=== PATIENT | female | born 1935 | race Caucasian/White ===

== ENCOUNTER → 2016-05-21 | Outpatient (REF) | payer MEDICARE ==
[~2016-05-21] MED LIST: /WARF25TA; ACTO45TA; CALC600T10; CALCTAB22; GABA300T; GLUCOSAMINE/CHONDROI; NEUR300C; OYST500T58; THERGRAN; TYLENOL #3; VICO5TAB; glucosamine/chondroi
[2016-05-21 13:11] LABS: PERCENT SATURATION 21.6 % (13.2-37.4)
== END ==
LOC: M LAB REF 12:28
PROVIDERS: ATTEND Internal Medicine Medical Oncology
DX: C50.119 Malignant neoplasm of central portion of unspecified female breast (principal); D64.9 Anemia, unspecified

== ENCOUNTER → 2016-08-22 | Outpatient (REF) | payer MEDICARE ==
[2016-08-22 15:16] LABS: PERCENT SATURATION 21.8 % (13.2-37.4)
== END ==
LOC: M LAB REF 12:40
PROVIDERS: ATTEND Internal Medicine Medical Oncology
DX: D50.9 Iron deficiency anemia, unspecified (principal)

== ENCOUNTER → 2017-01-23 | Outpatient (REF) | payer MEDICARE | LOC: M LAB REF 13:48 | PROVIDERS: ATTEND Internal Medicine Medical Oncology | DX: C50.919 Malignant neoplasm of unspecified site of unspecified female breast (principal); D64.9 Anemia, unspecified ==

== ENCOUNTER → 2017-09-04 | Outpatient (REF) | payer MEDICARE, OTHER ==
[2017-09-04 14:12] LABS: FERRITIN 35 NG/ML (8-252); IRON (FE) 76 UG/DL (50-170); PERCENT SATURATION 21.2 % (13.2-45.0); TOTAL IRON BINDING CAPACITY 358 UG/DL (250-450)
[2017-09-05 10:36] LABS: CA15-3 ANTIGEN 7.6 U/ML (<32.4)
== END ==
LOC: M LAB REF 13:15
DX: D50.9 Iron deficiency anemia, unspecified (principal)
CPT/HCPCS: 83550

== ENCOUNTER → 2017-09-08 | Outpatient (REF) | payer MEDICARE, OTHER | LOC: M LAB REF 13:06 | DX: D64.9 Anemia, unspecified (principal) | CPT/HCPCS: 82270 ==

== ENCOUNTER 2018-04-24 07:42 | Day surgery (SDC) | payer MEDICARE ==
[~2018-04-24] VITALS: Ht 152.4 cm; Wt 60.3 kg
[~2018-04-24 07:42] MED LIST changes: +ANAS1TAB2 PO; +DULO1CAP2 PO; +FERR325T3 PO; +GABA-843 PO; +GLUC1CAP10 PO; +LOSA25TA14 PO; +METF500T13 PO; +NS 1,000 ML IV ONE; +OXYB5TAB PO; +OYST1TAB PO; +SITA50TAB PO; +TYLE650T35 PO; +TYLETAB14 PO
[2018-04-24] MEDS ORDERED: LIDOCAINE 2% INJ 100 MG/5 ML SDV (FOR ANES.) As Ordered ONE (07:47)
[2018-04-24] MEDS ORDERED: fentaNYL 100 MCG/2 ML INJECTION (J3010) As Ordered ONE (07:47)
[2018-04-24] MEDS ORDERED: PROPOFOL 200 MG/20 ML VIAL As Ordered ONE (07:47)
--- NOTE | 2018-04-24 08:48 | ROOR ---
Patient Name: Yusra Bar Procedure Date: 04/24/2018 8:33 AM Date of : 1935 Age: 82 Room: [facility] Gender: Female Note Status: Finalized Procedure: Upper GI endoscopy + Small bowel bx. Indications: Iron deficiency anemia Providers: Kirt Elkins MD Referring MD: Torrie St DO Requesting Provider: Medicines: Monitored Anesthesia Care Complications: No immediate complications. Procedure: Pre-Anesthesia Assessment: - The heart rate, respiratory rate, oxygen saturations, blood pressure, adequacy of pulmonary ventilation, and response to care were monitored throughout the procedure. The Endoscope was introduced through the mouth, and advanced to the second part of duodenum. The upper GI endoscopy was accomplished without difficulty. The patient tolerated the procedure well. Findings: The Z-line was regular and was found 37 cm from the incisors. No other significant abnormalities were identified in a careful examination of the stomach. The exam of the duodenum was otherwise normal. Biopsies for histology were taken with a cold forceps in the first portion of the duodenum for evaluation of celiac disease. The exam was otherwise without abnormality. Impression: - Z-line regular, 37 cm from the incisors. - The examination was otherwise normal. - Biopsies were taken with a cold forceps for evaluation of celiac disease. - The examination was otherwise normal. Recommendation: - Patient has a contact number available for emergencies. The signs and symptoms of potential delayed complications were discussed with the patient. Return to normal activities tomorrow. Written discharge instructions were provided to the patient. - High fiber diet. - Discharge patient to home. - Continue present medications. - Await pathology results. - Telephone GI clinic for pathology results in 1 week. - Return to referring physician. - The findings and recommendations were discussed with the patient's family. Kirt Elkins MD Kirt Elkins MD 04/24/2018 8:47:35 AM This report has been signed electronically. Number of Addenda: 0 Note Initiated On: 04/24/2018 8:33 AM Estimated Blood Loss: Estimated blood loss: none.
--- NOTE | 2018-04-24 09:04 | ROOR ---
Patient Name: Yusra Bar Procedure Date: 04/24/2018 8:34 AM Date of : 1935 Age: 82 Room: [facility] Gender: Female Note Status: Finalized Procedure: Total Colonoscopy to Cecum Indications: Unexplained iron deficiency anemia Providers: Kirt Elkins MD Referring MD: Torrie St DO Requesting Provider: Medicines: Monitored Anesthesia Care Complications: No immediate complications. Procedure: Pre-Anesthesia Assessment: - The heart rate, respiratory rate, oxygen saturations, blood pressure, adequacy of pulmonary ventilation, and response to care were monitored throughout the procedure. The Colonoscope was introduced through the anus and advanced to the cecum, identified by appendiceal orifice and ileocecal valve. The colonoscopy was performed without difficulty. The patient tolerated the procedure well. The quality of the bowel preparation was excellent. Findings: The perianal and digital rectal examinations were normal. Non-bleeding internal hemorrhoids were found during retroflexion. The hemorrhoids were small and Grade I (internal hemorrhoids that do not prolapse). Multiple small and large-mouthed diverticula were found in the recto-sigmoid colon, sigmoid colon and descending colon. The exam was otherwise without abnormality on direct and retroflexion views. Impression: - Non-bleeding internal hemorrhoids. - Diverticulosis in the recto-sigmoid colon, in the sigmoid colon and in the descending colon. - The examination was otherwise normal on direct and retroflexion views. - No specimens collected. - The exam was otherwise normal to the cecum. Recommendation: - Patient has a contact number available for emergencies. The signs and symptoms of potential delayed complications were discussed with the patient. Return to normal activities tomorrow. Written discharge instructions were provided to the patient. - High fiber diet. - Discharge patient to home. - Continue present medications. - Repeat colonoscopy for symptoms only. - The findings and recommendations were discussed with the patient's family. Kirt Elkins MD Kirt Elkins MD 04/24/2018 9:04:29 AM This report has been signed electronically. Number of Addenda: 0 Note Initiated On: 04/24/2018 8:34 AM Estimated Blood Loss: Estimated blood loss: none.
[2018-04-24 09:35] VITALS: BP 186/86
== END 2018-04-24 09:36 | disposition home or self-care (01) ==
LOC: M OPP 07:42
PROVIDERS: ATTEND Internal Medicine Gastroenterology
DX: K64.0 First degree hemorrhoids (principal); K57.30 Diverticulosis of large intestine without perforation or abscess without bleeding; D50.9 Iron deficiency anemia, unspecified
CPT/HCPCS: 43239; 45378; 88305; J3010

== ENCOUNTER → 2018-06-18 | Outpatient (REF) | payer MEDICARE ==
[~2018-06-18] MED LIST changes: -/WARF25TA; +COUM1TAB18; +NAPR-832 PO; -NS 1,000 ML IV ONE
[2018-06-18 18:15] LABS: PERCENT SATURATION 25.8 % (13.2-45.0)
== END ==
LOC: M LAB REF 17:34
PROVIDERS: ATTEND Internal Medicine
DX: D64.9 Anemia, unspecified (principal)

== ENCOUNTER → 2018-12-22 | Outpatient (REF) | payer MEDICARE ==
[~2018-12-22] MED LIST changes: -DULO1CAP2 PO; +DULO1CAP5 PO; -OXYB5TAB PO; +OXYB5TAB2 PO
[2018-12-22 13:02] LABS: PLATELET COUNT, AUTOMATED 229 10^3/uL (150-450)
[2018-12-22 13:18] LABS: COLLAGEN EPINEPHRINE 131 SECONDS (74-162)
[2018-12-22 13:19] LABS: INR 1.01
[2018-12-22 13:20] LABS: PARTIAL THROMBOPLASTIN TIME 29.3 SECONDS (25.0-38.4)
== END ==
LOC: M LABDRAW1 12:40
PROVIDERS: ATTEND Physical Medicine & Rehabilitation
DX: M51.37 Other intervertebral disc degeneration, lumbosacral region (principal)

== ENCOUNTER → 2019-01-07 | Outpatient (CLI) | payer MEDICARE ==
--- NOTE | 2019-01-07 16:54 | REP ---
REASON FOR EXAM: Back pain. COMPARISON EXAM: 03/26/2012. After the intravenous administration of 22.0 millicuries of technetium 99M MDP a total body bone scan was obtained. Increased radionuclide accumulation is seen in the shoulders increased slightly from the prior exam. Increased radionuclide accumulation is seen in the left wrist status quo. 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 Increased radionuclide accumulation is seen in the feet and ankles unchanged. There is slight increased radionuclide accumulation seen in the lumbar spine at the L5 region which has developed since the last exam. Patchy increased radionuclide accumulation is again seen in the cervical spine. IMPRESSION: ALL uptake patterns with the exception of the increased radionuclide accumulation seen in the L5 region were present on the prior exam and consistent with degenerative changes. The increased uptake seen is of uncertain etiology. Certainly, it too could be secondary to degenerative change, however other etiology exits. A lumbar spine MRI of 07/14/2018 showed chronic changes at L4-5 and L5-S1. If the patient has pain of increasing severity or has sustained an injury or new medical diagnosis since that examination then consideration should be made for repeat lumbar spine MRI so is it can be compared to the prior exam. Electronically Signed by Mario Alberto Millan DO 01/07/2019 04:59 P
== END ==
LOC: M RAD 09:48
PROVIDERS: ATTEND Physical Medicine & Rehabilitation
DX: M47.27 Other spondylosis with radiculopathy, lumbosacral region (principal)
CPT/HCPCS: 78306; A9503

== ENCOUNTER → 2019-03-02 | Outpatient (REF) | payer MEDICARE ==
[~2019-03-02] MED LIST changes: -OXYB5TAB2 PO; +OXYB5TAB3 PO
[2019-03-02 12:29] LABS: BLOOD UREA NITROGEN 14 MG/DL (7-18); CREATININE FOR GFR 0.59 MG/DL (0.55-1.30); GLOMERULAR FILTRATION RATE > 60.0 (>32)
== END ==
LOC: M LABDRAW1 10:49
PROVIDERS: ATTEND Physical Medicine & Rehabilitation
DX: M51.27 Other intervertebral disc displacement, lumbosacral region (principal)

== ENCOUNTER → 2019-03-15 | Outpatient (CLI) | payer MEDICARE ==
[~2019-03-15] MED LIST changes: +PROHANCE 279.3MG/ML 15ML VIAL (A9576) As Ordered ONE
--- NOTE | 2019-03-15 16:35 | REP ---
MRI lumbar spine: 03/15/2019. Indication: Low back pain. Concern for metastases. Comparison: None. Technique: Multiplanar short and long TR sequences of the lumbar spine were performed including post gadolinium imaging. 12 ml of IV ProHance were administered. Findings: There is a grade 1 anterolisthesis of L3 on L4 and L4 on L5 as well as minimal retrolisthesis of L5 on S1. No compression deformities are present. There are no areas of worrisome marrow signal. There are multiple areas of enhancement within the L4/L5 facet/Perifacetal soft tissue. The visualized cord is normal. No significant paraspinal soft tissue abnormalities are detected. L1/L2 and L2/L3: There is no focal disc herniation or significant spinal canal / neural foraminal narrowing. Bilateral facet arthropathy is present at each level. L3/L4: Diffuse disc uncovering/bulge and bilateral facet arthropathy are present with moderate to severe right greater than left recess narrowing. Moderate bilateral neural foraminal narrowing is present. L4/L5: Diffuse disc uncovering/bulge and significant bilateral facet arthropathy are present. Dural enhancement at this level as likely reactive. There is severe narrowing of the spinal canal. Moderate bilateral neural foraminal narrowing is present. L5/S1: Diffuse disc and spur complex and bilateral facet arthropathy are present with severe left and moderate to severe right recess narrowing. Moderate bilateral neural foraminal narrowing is present. 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 There is no evidence of lumbar spine metastatic disease. Electronically Signed by Gabo Lang DO 03/15/2019 04:27 P
== END ==
LOC: M RAD 14:59
PROVIDERS: ATTEND Physical Medicine & Rehabilitation
DX: M51.27 Other intervertebral disc displacement, lumbosacral region (principal)
CPT/HCPCS: 72158; A9576

== ENCOUNTER → 2019-08-10 | Outpatient (REF) | payer MEDICARE ==
[~2019-08-10] MED LIST changes: +GABA-845 PO; +MYRB25TA PO; +OXYB-54 PO; -OXYB5TAB3 PO; -PROHANCE 279.3MG/ML 15ML VIAL (A9576) As Ordered ONE
[2019-08-10 20:20] LABS: ALBUMIN 3.7 GM/DL (3.2-5.2); ALT/SGPT 26 U/L (12-78); BILIRUBIN,TOTAL 0.3 MG/DL (0.2-1.0); BLOOD UREA NITROGEN 16 MG/DL (7-18); CALCIUM LEVEL 8.9 MG/DL (8.8-10.2); CARBON DIOXIDE LEVEL 31 MEQ/L (21-32); CHLORIDE LEVEL 100 MEQ/L (98-107); CREATININE FOR GFR 0.71 MG/DL (0.55-1.30); GLOMERULAR FILTRATION RATE > 60.0 (>32); GLUCOSE, FASTING 155 MG/DL (70-100); POTASSIUM SERUM 4.2 MEQ/L (3.5-5.1); SODIUM LEVEL 139 MEQ/L (136-145); TOTAL PROTEIN 6.7 GM/DL (6.4-8.2)
[2019-08-10 20:23] LABS: BASO # 0.1 10^3/uL (0.0-0.2); BASO % 0.8 % (0.0-1.0); EOS # 0.5 10^3/uL (0.0-0.5); HEMATOCRIT 34.4 % (36.0-47.0); HEMOGLOBIN 11.1 g/dl (12.0-15.5); LYMPH # 1.5 10^3/uL (1.5-5.0); LYMPH % 18.9 % (24.0-44.0); MEAN CORPUSCULAR HEMOGLOBIN 29.3 pg (27.0-33.0); MEAN CORPUSCULAR HGB CONC 32.3 g/dl (32.0-36.5); MEAN CORPUSCULAR VOLUME 90.8 fl (80.0-96.0); MONO # 0.7 10^3/uL (0.0-0.8); MONO % 8.7 % (0.0-5.0); NEUTROPHILS % 64.2 % (36.0-66.0); PLATELET COUNT, AUTOMATED 255 10^3/uL (150-450); RED BLOOD COUNT 3.79 10^6/uL (4.00-5.40); WHITE BLOOD COUNT 7.7 10^3/uL (4.0-10.0)
== END ==
LOC: M LABDRWAD 16:53
PROVIDERS: ATTEND Internal Medicine Medical Oncology
DX: R92.2 Inconclusive mammogram (principal)

== ENCOUNTER → 2019-09-10 | Outpatient (CLI) | payer MEDICARE | LOC: M LABSMTC 10:41 | PROVIDERS: ATTEND Physical Medicine & Rehabilitation | DX: Z11.59 Encounter for screening for other viral diseases (principal) ==

== ENCOUNTER → 2019-11-24 | Outpatient (CLI) | payer MEDICARE ==
[~2019-11-24] MED LIST changes: +ACET650T61 PO; +FERR32TA PO; -TYLE650T35 PO
[2019-11-24 11:01] LABS: PLATELET COUNT, AUTOMATED 216 10^3/uL (150-450)
[2019-11-24 11:17] LABS: COLLAGEN EPINEPHRINE 117 SECONDS (74-162); INR 0.93; PROTHROMBIN TIME 12.6 SECONDS (11.8-14.0)
[2019-11-24 11:18] LABS: PARTIAL THROMBOPLASTIN TIME 27.6 SECONDS (25.0-38.4)
== END ==
LOC: M LAB 10:23
PROVIDERS: ATTEND Physician Assistant
DX: M51.27 Other intervertebral disc displacement, lumbosacral region (principal); Z79.899 Other long term (current) drug therapy; Z79.84 Long term (current) use of oral hypoglycemic drugs

== ENCOUNTER → 2019-11-29 | Outpatient (REF) | payer MEDICARE | LOC: M LAB REF 16:34 | PROVIDERS: ATTEND Internal Medicine | DX: D64.9 Anemia, unspecified (principal) ==

== ENCOUNTER → 2020-01-19 | Outpatient (CLI) | payer MEDICARE | LOC: M LABSMTC 12:59 | PROVIDERS: ATTEND Physical Medicine & Rehabilitation | DX: Z01.818 Encounter for other preprocedural examination (principal) ==

== ENCOUNTER 2020-03-13 10:04 | Emergency (ER) | payer MEDICARE ==
[~2020-03-13] VITALS: Ht 152.4 cm; Wt 61.2 kg
--- NOTE | 2020-03-13 11:03 | REP ---
INDICATION: RUQ pain, constipation COMPARISON: None. TECHNIQUE: Upright view of the chest with supine and upright views of the abdomen and pelvis. FINDINGS: Frontal upright view of the chest demonstrates no acute cardiopulmonary process or free air below the diaphragm to suspect pneumoperitoneum. Supine and upright views of the abdomen and pelvis demonstrate nonspecific bowel gas pattern without obstruction or perforation. No organomegaly. Calcifications in the pelvis consistent with phleboliths. Skeletal structures normal for age. IMPRESSION: Nonspecific bowel gas pattern. <Electronically signed by Noel Cabrera > 03/13/20 [id number]
[2020-03-13 11:37] LABS: BASO # 0.1 10^3/uL (0.0-0.2); BASO % 0.9 % (0.0-1.0); EOS # 0.3 10^3/uL (0.0-0.5); EOS % 5.4 % (0.0-3.0); HEMOGLOBIN 11.4 g/dl (12.0-15.5); LYMPH # 0.9 10^3/uL (1.5-5.0); LYMPH % 15.9 % (24.0-44.0); MEAN CORPUSCULAR HEMOGLOBIN 27.1 pg (27.0-33.0); MEAN CORPUSCULAR HGB CONC 30.8 g/dl (32.0-36.5); MEAN CORPUSCULAR VOLUME 88.1 fl (80.0-96.0); MONO # 0.5 10^3/uL (0.0-0.8); MONO % 8.3 % (0.0-5.0); NEUTROPHILS # 3.8 10^3/uL (1.5-8.5); PLATELET COUNT, AUTOMATED 234 10^3/uL (150-450); WHITE BLOOD COUNT 5.5 10^3/uL (4.0-10.0)
[2020-03-13] MEDS: GASTROGRAFIN SOLUTION 30ML PO SCH ×2 (13:30→14:37)
[2020-03-13] MEDS ORDERED: ISOVUE-370 76% 100ML VIAL As Ordered ONE (15:37)
--- NOTE | 2020-03-13 16:08 | REP ---
INDICATION: right abd pain. COMPARISON: None TECHNIQUE: Axial contrast-enhanced images from the lung bases to the pubic symphysis using oral and 100 cc Isovue 370 intravenous contrast material. Coronal and sagittal reformations obtained. This CT examination was performed using the following dose reduction techniques: Automated exposure control, adjustment of mA and/or kv according to the patient's size, and the use of iterative reconstruction technique. FINDINGS: Lung bases are clear. Visualized heart and pericardium normal. Liver, spleen, pancreas, bilateral adrenal glands and kidneys are normal. The enteric system is without obstruction or acute inflammatory process. Normal cecum and terminal ileum identified in the right lower quadrant. Findings suggest prior appendectomy. Diffuse colonic and sigmoid diverticulosis noted without acute diverticulitis. Pelvis demonstrates normal bladder and age-appropriate uterus with 4.5 cm bilateral adnexal cysts. No ascites. No free air. No intraperitoneal or retroperitoneal adenopathy. Abdominal aorta and vasculature demonstrate atherosclerotic changes without aneurysm or dissection. Musculoskeletal structures demonstrate age-related degenerative changes without acute osseous abnormality. IMPRESSION: 1. 4.5 cm bilateral adnexal cysts likely benign. Normal appearance to the uterus. No pelvic fluid or adenopathy. 2. Colonic and sigmoid diverticulosis without acute diverticulitis. 3. No ascites. No adenopathy. No focal inflammatory stranding. No free air. 4. Evidence for prior cholecystectomy and appendectomy. <Electronically signed by Noel Cabrera > 03/13/20 [id number]
[2020-03-13] MEDS ORDERED: COLA100C5 PO (16:49)
[2020-03-13 16:52] VITALS: BP 179/94
== END 2020-03-13 17:06 | disposition home or self-care (01) ==
LOC: M ED 10:04
DX: R10.9 Unspecified abdominal pain (principal); K57.30 Diverticulosis of large intestine without perforation or abscess without bleeding; C50.912 Malignant neoplasm of unspecified site of left female breast; D64.9 Anemia, unspecified; E11.9 Type 2 diabetes mellitus without complications; Z88.0 Allergy status to penicillin; Z88.6 Allergy status to analgesic agent
CPT/HCPCS: 36415; 74021; 74177; 80047; 85025; 99284; Q9963; Q9967

== ENCOUNTER 2020-10-08 10:07 | Emergency (ER) | payer MEDICARE ==
[~2020-10-08] VITALS: Ht 152.4 cm; Wt 56.1 kg
[~2020-10-08 10:07] MED LIST changes: +COLA100C5 PO; +COVI100V IM; +GABA-282 PO; +GABA-283 PO; -GABA-843 PO; -GABA-845 PO
[2020-10-08 12:11] LABS: BASO % 0.5 % (0.0-1.0); EOS # 0.1 10^3/uL (0.0-0.5); HEMATOCRIT 38.4 % (36.0-47.0); HEMOGLOBIN 12.8 g/dl (12.0-15.5); LYMPH # 1.2 10^3/uL (1.5-5.0); LYMPH % 14.5 % (24.0-44.0); MEAN CORPUSCULAR HEMOGLOBIN 30.9 pg (27.0-33.0); MEAN CORPUSCULAR HGB CONC 33.3 g/dl (32.0-36.5); MEAN CORPUSCULAR VOLUME 92.8 fl (80.0-96.0); MONO # 0.6 10^3/uL (0.0-0.8); MONO % 6.6 % (2.0-8.0); NEUTROPHILS # 6.4 10^3/uL (1.5-8.5); NEUTROPHILS % 76.9 % (36.0-66.0); PLATELET COUNT, AUTOMATED 246 10^3/uL (150-450); RED BLOOD COUNT 4.14 10^6/uL (4.00-5.40); WHITE BLOOD COUNT 8.4 10^3/uL (4.0-10.0)
[2020-10-08] MEDS ORDERED: NS 500 ML IV ONE (12:25)
--- NOTE | 2020-10-08 12:28 | REP ---
INDICATION: abdominal pain. COMPARISON: Comparison chest radiograph March 13, 2020.. TECHNIQUE: Upright portable AP chest radiograph. 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 No acute bony abnormality is appreciated. The lungs are well inflated and clear. The pleural angles are sharp. Heart size is normal. The aorta is somewhat tortuous as before. IMPRESSION: No active cardiopulmonary disease. <Electronically signed by Ahsan Vernon > 10/08/20 1341
[2020-10-08 12:34] LABS: ALBUMIN 4.5 GM/DL (3.2-5.2); ALT/SGPT 26 U/L (12-78); AMYLASE 52 U/L (25-115); BILIRUBIN,DIRECT 0.2 MG/DL (0.0-0.2); BILIRUBIN,TOTAL 0.6 MG/DL (0.2-1.0); CK-MB VALUE MASS < 1.0 NG/ML (<3.6); CPK CREATINE PHOSPHOKINASE 50 U/L (26-192); LIPASE 51 U/L (73-393); TOTAL PROTEIN 7.5 GM/DL (6.4-8.2); TROPONIN I < 0.02 NG/ML (< 0.10)
[2020-10-08] MEDS ORDERED: ISOVUE-370 76% 100ML VIAL As Ordered ONE (12:48)
--- NOTE | 2020-10-08 13:26 | REP ---
INDICATION: bd pain, diarrhea, eval for diverticulitis. COMPARISON: Comparison CT study March 13, 2020.. TECHNIQUE: Helical scanning was acquired and 4 mm axial images are re-formatted. Coronal and sagittal MPR images were generated and reviewed. The contrast enhancement dose is 100 mL of intravenous Isovue 370. FINDINGS: Preliminary digital selector packer radiograph is noncontributory. The lung bases are clear on axial CT images. There is no evidence of pleural effusion or upper abdominal ascites. Normal adrenal glands are seen. The gallbladder is surgically absent. There is a small accessory splenule at the inferior spleen tip. The kidneys enhance symmetrically. There is no evidence of hydronephrosis or intrarenal calculus on either side. No retroperitoneal mass or adenopathy is seen. The pancreas is fatty involuted as on prior study. No mass or cyst is seen. Bilateral ovarian cysts are seen, 5.8 x 4.9 cm dimension on the right and 5.0 x 4.6 cm on the left. These are slightly larger than on the prior study. No uterine abnormality is seen. Urinary bladder is unremarkable. The appendix is surgically absent by history. There is sigmoid colon diverticulosis without CT evidence of diverticulitis. There is mild diffuse mural thickening affecting the colon which may reflect enterocolitis. No bony destructive lesion is appreciated. IMPRESSION: Mild enterocolitis pattern with mural thickening affecting the colon. Left colonic diverticulosis. No CT evidence of diverticulitis. Cystic enlargement of both ovaries again seen, somewhat increased from prior study. Benign and malignant cystic disease of the ovaries are possible etiologies. No other acute abnormality. <Electronically signed by Ahsan Vernon > 10/08/20 [id number]
[2020-10-08 17:29] VITALS: BP 180/96
--- NOTE | 2020-10-09 20:26 | ECGEPIP ---
[facility] - ED Test Date: 2020-10-08 Pat Name: DOROTHY BORGES Department: Room: - Gender: Female Digital [employer] Trafficker: : [id number] Requested By: Mariia Lozano Order Number: [id number] Reading MD: Gladys Sauceda Measurements Intervals [place] Rate: 83 P: 62 VA: 118 QRS: 56 QRSD: 130 T: 25 QT: 418 QTc: 491 Interpretive Statements Sinus rhythm with premature atrial complexes Biatrial enlargement Right bundle branch block prolonged qtc no prior Electronically Signed on 10-09-2020 20:26:04 EDT by Gladys Sauceda
== END 2020-10-08 17:32 | disposition home or self-care (01) ==
LOC: M ED 10:07
DX: K52.9 Noninfective gastroenteritis and colitis, unspecified (principal); R94.31 Abnormal electrocardiogram [ECG] [EKG]; K57.30 Diverticulosis of large intestine without perforation or abscess without bleeding; Z88.0 Allergy status to penicillin; Z88.6 Allergy status to analgesic agent; Z79.899 Other long term (current) drug therapy
CPT/HCPCS: 36415; 71045; 74177; 80047; 80076; 81001; 82150; 82550; 82553; 83605; 83690; 84484; 85025; 87040; 87338; 87505; 93005; 93041; 99285; Q9967

== ENCOUNTER → 2020-10-13 | Outpatient (REF) | payer MEDICARE ==
[2020-10-13 18:15] LABS: C REACTIVE PROTEIN QUANTITATIV < 0.30 MG/DL (0.00-0.30)
[2020-10-13 18:53] LABS: CA 125 7.8 U/ML (<30.2)
== END ==
LOC: M LAB REF 16:19
PROVIDERS: ATTEND Internal Medicine
DX: R19.7 Diarrhea, unspecified (principal); N83.209 Unspecified ovarian cyst, unspecified side; R63.4 Abnormal weight loss

== ENCOUNTER → 2020-10-25 | Outpatient (CLI) | payer MEDICARE ==
--- NOTE | 2020-10-25 13:54 | REP ---
INDICATION: CYSTIC ENLARGEMENT AYANA OVARIES SEEN ON CT. COMPARISON: Abdomen/pelvis CT of 10/08/2020. TECHNIQUE: Multiple sonographic images of the pelvis, transabdominal ultrasound and Doppler ultrasound. Patient declined endovaginal ultrasound. FINDINGS: The uterus is anteverted and normal size measuring 7.3 x 3.0 x 3.5 cm. The endometrium measures 5.7 mm thickness. This is slightly thickened for patient age. Upper normal for patient age is 5 mm. Right ovary: There is a thin walled simple right ovarian cyst measuring 6.2 x 4.3 x 4.0 cm. Including this cyst the right ovary is a overall enlarged measuring 7.2 x 5.0 x 4.7 cm. Left ovary: There is a thin walled simple left ovarian cyst measuring 4.8 x 3.7 x 4.6 cm. Including this cyst in the left ovary is upper normal size measuring 4.6 x 5.4 x 4.6 cm. There is vascular flow in both ovaries. The Doppler resistive index in the parenchymal arteries of the right ovary is 0.70 and left ovary 0.60. There is no free fluid in the pelvis. IMPRESSION: There is a large simple cyst in each ovary as described. There is vascular flow in both ovaries. The endometrium is slightly thickened for patient age. No free fluid in the pelvis. <Electronically signed by Antoni Hayes > 10/25/20 2218
== END ==
LOC: M RAD 12:13
PROVIDERS: ATTEND Internal Medicine
DX: N83.209 Unspecified ovarian cyst, unspecified side (principal)

== ENCOUNTER → 2020-12-20 | Outpatient (CLI) | payer MEDICARE ==
[~2020-12-20] MED LIST changes: +JANU100T PO
== END ==
LOC: M LABSMTC 10:11
PROVIDERS: ATTEND Pediatrics
DX: Z20.822 Contact with and (suspected) exposure to COVID-19 (principal)
CPT/HCPCS: C9803; U0003

== ENCOUNTER → 2021-01-18 | Outpatient (CLI) | payer MEDICARE ==
[~2021-01-18] MED LIST changes: +PROHANCE 279.3MG/ML 15ML VIAL As Ordered ONE
--- NOTE | 2021-01-18 13:05 | REP ---
INDICATION: BREAST CA. COMPARISON: MRI 01/27/2020. TECHNIQUE: Three Claudia MRI imaging was performed with a dedicated breast coil. Axial, coronal, and sagittal T1 and T2 weighted scans were obtained with and without fat saturation in the usual fashion. The study includes dynamically acquired post gadolinium-enhanced imaging with image subtraction. Maximum intensity projection and multi planar reformation imaging is included as well. This study is interpreted with the aid of [employer], an FDA approved computer aided detection (CAD) software program, on a dedicated breast MRI workstation. The gadolinium enhancement dose is 11 mL of intravenous ProHance. FINDINGS: There is mild to moderate scattered fibroglandular tissue present bilaterally. Post treatment changes are again seen of the left breast, with postsurgical fibrosis and diffuse skin thickening, unchanged. The left breast is smaller than the right. There is mild background parenchymal enhancement bilaterally. No significant cystic change is seen. There is no axillary adenopathy. There is no suspicious enhancing mass or morphologic abnormality. There is a benign 1 cm cyst in the left lobe of the liver anteriorly. IMPRESSION: BI-RADS category 2, benign bilateral breast MRI. Post treatment changes left breast. The exam is unchanged. There is no new suspicious enhancing mass or morphologic abnormality. <Electronically signed by Antoni Mccurdy > 01/18/21 [id number]
== END ==
LOC: M RAD 10:35
PROVIDERS: ATTEND Nurse Practitioner Adult Health
DX: C50.512 Malignant neoplasm of lower-outer quadrant of left female breast (principal)
CPT/HCPCS: A9576; C8908

== ENCOUNTER → 2021-09-10 | Outpatient (CLI) | payer MEDICARE ==
[~2021-09-10] MED LIST changes: +FARX1TAB3 PO; +JARD1TAB PO; +LOSA25TA13 PO; -LOSA25TA14 PO; +ONGL1TAB9 PO; -PROHANCE 279.3MG/ML 15ML VIAL As Ordered ONE
== END ==
LOC: M WHC 13:01
PROVIDERS: ATTEND Internal Medicine
DX: R32 Unspecified urinary incontinence (principal)

== ENCOUNTER 2021-12-29 06:55 | Emergency (ER) | payer MEDICARE ==
[~2021-12-29] VITALS: Ht 152.4 cm; Wt 63.6 kg
[~2021-12-29 06:55] MED LIST changes: +GLIM1TAB4; +PRAM1TAB7; +PREG50CA2
[2021-12-29 09:53] VITALS: BP 162/82
== END 2021-12-29 10:17 | disposition home or self-care (01) ==
LOC: M ED 06:55
DX: R35.89 Other polyuria (principal); E87.1 Hypo-osmolality and hyponatremia; E11.9 Type 2 diabetes mellitus without complications; I10 Essential (primary) hypertension; Z88.6 Allergy status to analgesic agent; Z88.0 Allergy status to penicillin; Z79.82 Long term (current) use of aspirin; Z79.811 Long term (current) use of aromatase inhibitors; Z79.899 Other long term (current) drug therapy; Z79.4 Long term (current) use of insulin

== ENCOUNTER → 2022-01-18 | Outpatient (CLI) | payer MEDICARE ==
[~2022-01-18] MED LIST changes: +PROHANCE 279.3MG/ML 15ML VIAL As Ordered ONE
== END ==
LOC: M RAD 10:27
PROVIDERS: ATTEND Internal Medicine Medical Oncology
DX: Z85.3 Personal history of malignant neoplasm of breast (principal)
CPT/HCPCS: A9576; C8908

== ENCOUNTER → 2023-01-20 | Outpatient (CLI) | payer MEDICARE ==
[~2023-01-20] MED LIST changes: +CLOT1CRE71 TOP; -GABA-283 PO; +GABA-284 PO; -PREG50CA2; +PREG50CA3; +ROPI1TAB73
== END ==
LOC: M RAD 12:18
PROVIDERS: ATTEND Nurse Practitioner
DX: C50.912 Malignant neoplasm of unspecified site of left female breast (principal)

== ENCOUNTER → 2023-03-24 | Outpatient (CLI) | payer MEDICARE ==
[~2023-03-24] MED LIST changes: +INVO100T; +MAGN400C PO; -PROHANCE 279.3MG/ML 15ML VIAL As Ordered ONE
[2023-03-24 13:45] LABS: BASO # 0.1 10^3/uL (0.0-0.2); BASO % 0.9 % (0.0-1.0); EOS # 0.2 10^3/uL (0.0-0.5); EOS % 3.1 % (0.0-3.0); HEMOGLOBIN 12.5 g/dl (12.0-15.5); LYMPH # 1.5 10^3/uL (1.5-5.0); LYMPH % 23.7 % (24.0-44.0); MEAN CORPUSCULAR HEMOGLOBIN 29.2 pg (27.0-33.0); MEAN CORPUSCULAR HGB CONC 32.1 g/dl (32.0-36.5); MEAN CORPUSCULAR VOLUME 91.1 fl (80.0-96.0); MONO # 0.5 10^3/uL (0.0-0.8); NEUTROPHILS # 4.2 10^3/uL (1.5-8.5); NEUTROPHILS % 65.1 % (36.0-66.0); PLATELET COUNT, AUTOMATED 216 10^3/uL (150-450); RED BLOOD COUNT 4.28 10^6/uL (4.00-5.40); WHITE BLOOD COUNT 6.4 10^3/uL (4.0-10.0)
[2023-03-24 13:52] LABS: ERYTHROCYTE SEDIMENTATION RATE 24 mm/hr (0-30)
== END ==
LOC: M PLALAB 10:32
PROVIDERS: ATTEND Physician Assistant
DX: M16.11 Unilateral primary osteoarthritis, right hip (principal)

== ENCOUNTER → 2023-04-11 | Outpatient (CLI) | payer MEDICARE | LOC: M PLARAD 14:06 | PROVIDERS: ATTEND Physician Assistant | DX: M16.11 Unilateral primary osteoarthritis, right hip (principal); N83.201 Unspecified ovarian cyst, right side; N83.202 Unspecified ovarian cyst, left side ==

== ENCOUNTER → 2023-05-29 | Outpatient (REF) | payer MEDICARE | LOC: M LAB REF 12:17 | PROVIDERS: ATTEND Internal Medicine | DX: N83.299 Other ovarian cyst, unspecified side (principal); N83.201 Unspecified ovarian cyst, right side ==

== ENCOUNTER → 2023-06-19 | Outpatient (CLI) | payer MEDICARE ==
[~2023-06-19] MED LIST changes: +GASTROGRAFIN SOLUTION 30ML As Ordered ONE; +ISOVUE-370 76% 100ML VIAL As Ordered ONE
== END ==
LOC: M RAD 11:03
PROVIDERS: ATTEND Internal Medicine
DX: R93.89 Abnormal findings on diagnostic imaging of other specified body structures (principal); K76.0 Fatty (change of) liver, not elsewhere classified
CPT/HCPCS: 74177; Q9963; Q9967

== ENCOUNTER → 2023-09-23 | Outpatient (REF) | payer MEDICARE ==
[~2023-09-23] MED LIST changes: -GASTROGRAFIN SOLUTION 30ML As Ordered ONE; -GLIM1TAB4; +GLIM1TAB84; -ISOVUE-370 76% 100ML VIAL As Ordered ONE
== END ==
LOC: M LAB REF 16:33
PROVIDERS: ATTEND Internal Medicine
DX: R93.89 Abnormal findings on diagnostic imaging of other specified body structures (principal)

== ENCOUNTER 2023-11-05 10:49 | Emergency (ER) | payer MEDICARE ==
[~2023-11-05] VITALS: Ht 165.1 cm; Wt 57.0 kg
[2023-11-05 12:25] LABS: BASO % 0.6 % (0.0-1.0); EOS # 0.1 10^3/uL (0.0-0.5); HEMATOCRIT 39.7 % (36.0-47.0); HEMOGLOBIN 13.1 g/dl (12.0-15.5); LYMPH # 0.8 10^3/uL (1.5-5.0); MEAN CORPUSCULAR HEMOGLOBIN 28.8 pg (27.0-33.0); MEAN CORPUSCULAR VOLUME 87.3 fl (80.0-96.0); MONO # 0.5 10^3/uL (0.0-0.8); MONO % 6.4 % (2.0-8.0); NEUTROPHILS # 5.7 10^3/uL (1.5-8.5); NEUTROPHILS % 80.6 % (36.0-66.0); PLATELET COUNT, AUTOMATED 204 10^3/uL (150-450); RED BLOOD COUNT 4.55 10^6/uL (4.00-5.40); WHITE BLOOD COUNT 7.1 10^3/uL (4.0-10.0)
[2023-11-05 12:37] LABS: INR 1.03; PROTHROMBIN TIME 13.2 SECONDS (12.5-14.5)
[2023-11-05 12:48] LABS: LIPASE 17 U/L (12-53)
[2023-11-05 12:50] LABS: ALBUMIN 4.1 G/DL (3.2-5.2); ALKALINE PHOSPHATASE 87 U/L (46-116); ALT/SGPT 21 U/L (7.0-40); AST/SGOT 14 U/L (<34); BILIRUBIN,DIRECT 0.1 MG/DL (<0.4); BILIRUBIN,TOTAL 0.5 MG/DL (0.3-1.2); BLOOD UREA NITROGEN 13 MG/DL (9-23); CALCIUM LEVEL 9.3 MG/DL (8.3-10.6); CARBON DIOXIDE LEVEL 28 MMOL/L (20-31); CHLORIDE LEVEL 101 MMOL/L (98-107); CREATININE FOR GFR 0.42 MG/DL (0.55-1.30); GLOMERULAR FILTRATION RATE > 60.0 (>32); GLUCOSE, FASTING 145 MG/DL (74-106); POTASSIUM SERUM 4.5 MMOL/L (3.5-5.1); SODIUM LEVEL 133 MMOL/L (136-145); TOTAL PROTEIN 6.9 G/DL (5.7-8.2)
[2023-11-05 14:34] VITALS: BP 167/94; TEMP 97; O2SAT 93
== END 2023-11-05 14:38 | disposition home or self-care (01) ==
LOC: M ED 10:49
DX: A08.2 Adenoviral enteritis (principal); E11.9 Type 2 diabetes mellitus without complications; I10 Essential (primary) hypertension; D50.9 Iron deficiency anemia, unspecified; C50.012 Malignant neoplasm of nipple and areola, left female breast; Z88.0 Allergy status to penicillin; Z88.5 Allergy status to narcotic agent; Z79.811 Long term (current) use of aromatase inhibitors; Z79.899 Other long term (current) drug therapy

== ENCOUNTER → 2024-03-02 | Outpatient (REF) | payer MEDICARE ==
[~2024-03-02] MED LIST changes: +GABA-1172 PO; -GABA-282 PO
[2024-03-02 17:08] LABS: RSV AMPLIFICATION NEGATIVE (NEGATIVE)
== END ==
LOC: M LAB REF 16:13
PROVIDERS: ATTEND Internal Medicine
DX: Z20.828 Contact with and (suspected) exposure to other viral communicable diseases (principal)

== ENCOUNTER 2024-10-08 20:16 | Emergency (ER) | payer MEDICARE ==
[~2024-10-08] VITALS: Ht 157.5 cm; Wt 59.0 kg
[2024-10-08] MEDS ORDERED: diphenhydrAMINE 50 MG/ML VIAL As Ordered ONE (20:23)
[2024-10-08] MEDS ORDERED: FAMOTIDINE 20 MG/2 ML VIAL As Ordered ONE (20:24)
[2024-10-08] MEDS ORDERED: dexAMETHasone 4 MG/ML 1 ML VIAL As Ordered ONE (20:25)
[2024-10-08] MEDS: diphenhydrAMINE 50 MG/ML VIAL IV ONE (20:26)
[2024-10-08] MEDS: FAMOTIDINE 20 MG/2 ML VIAL IVP ONE (20:26)
[2024-10-08] MEDS: IPRATROPIUM 0.5 MG/ALBUTEROL 2.5 MG INH SOL UD 3 ML NEB SCH (20:33)
[2024-10-08] MEDS: METOPROLOL 5 MG/5 ML VIAL IV SCH (20:56)
[2024-10-08 22:06] VITALS: BP 175/84
[2024-10-08 22:26] VITALS: TEMP 98.2
[2024-10-08] MEDS ORDERED: CETI10CH PO (22:30)
[2024-10-08] MEDS ORDERED: PRED20TA PO (22:30)
[2024-10-08] MEDS ORDERED: HYDR-3363 PO (22:30)
[2024-10-08] MEDS ORDERED: EPIP0.3I2 IM (22:32)
[2024-10-08 23:14] VITALS: BP 135/81; O2SAT 96
== END 2024-10-08 23:15 | disposition home or self-care (01) ==
LOC: M ED 20:16
DX: T63.441A Toxic effect of venom of bees, accidental (unintentional), initial encounter (principal); I10 Essential (primary) hypertension; F39 Unspecified mood [affective] disorder; Z79.1 Long term (current) use of non-steroidal anti-inflammatories (NSAID); Z79.899 Other long term (current) drug therapy; Z79.52 Long term (current) use of systemic steroids; Z88.0 Allergy status to penicillin; Z88.5 Allergy status to narcotic agent
CPT/HCPCS: 93041; 94640; 94760; 96374; 96375; 99285; J0616; J1100; J1200; J1308